=== PATIENT | female | born 1990 | race Caucasian/White ===

== ENCOUNTER 2019-02-08 23:44 | Emergency (ER) | payer BC ==
[2019-02-09] MEDS ORDERED: Metoclopramide 10 MG/2 ML SDV IVPUSH ONE (00:06)
[2019-02-09] MEDS ORDERED: diphenhydrAMINE 50 MG/ML SDV IVPUSH ONE (00:06)
--- NOTE | 2019-02-09 00:07 | EDM.PDOC ---
ED HPI GENERAL MEDICAL PROBLEM - General Chief Complaint: Gastrointestinal Problem Stated Complaint: VOMMITTING AND WEAK Time Seen by Provider: 02/09/19 00:01 Source of Information: Reports: Patient History Limitations: Reports: No Limitations - History of Present Illness INITIAL COMMENTS - FREE TEXT/NARRATIVE: 28-year-old female presents to the ED with reported diarrhea for 2 days anywhere between 5 and 10 times per day. Diary tends to be fairly high volume fluid losses and is yellow in color. No blood noted per rectum. She began vomiting about 0500 hrs. yesterday morning. She has been vomiting almost every hour. Sips of water may be stay down for a bit. She had some cereal before going to work at about 2100 hrs. but vomited this up as well. She went to work at [employer] at 10:00 as per her regular shift start. However within 2 hours she recognized she was no longer able to continue the workplace and called her . She vomited last en route to the hospital. Mostly bile. No blood. She feels chilled but has no defined fever. No one else in the family is ill at this time. On the previous abdominal surgery is . She initially had epigastric abdominal pain but this is for the most part gone. Her muscles are sore from vomiting. Onset: Sudden Onset Date: 02/08/19 Onset Time: 05:00 (Awoken from sleep with spontaneous vomiting yesterday morning. She's had diarrhea for a day before that.) Duration: Hour(s):, Constant Location: Reports: Abdomen (Persistent nausea and vomiting since 5:00 yesterday morning and loose watery diarrhea stools 2 days.) Quality: Reports: Ache (Ache central abdomen.) Severity: Moderate Improves with: Reports: None Worsens with: Reports: Eating Context: Denies: Activity (Eating or drinking makes it much worse.), Exercise, Lifting, Sick Contact, Trauma, Other (Spontaneous occurrence) Associated Symptoms: Reports: Fever/Chills (Chills with no defined fever.), Weakness, Other Treatments INTAKE CLERK: Reports: Other (see below) (Lightheaded dizzy with standing. None.) - Related Data Allergies Allergy/AdvReac Type Severity Reaction Status Date / Time No Known Allergies Allergy Verified 02/08/19 23:56 Home Meds: Home Meds Dicyclomine [Bentyl] 20 mg PO Q6H PRN #5 tablet 02/09/19 [Rx] Ondansetron [Zofran] 4 mg BUCCAL Q6H PRN #5 tab 02/09/19 [Rx] Past Medical History - Past Health History Medical/Surgical History: Denies Medical/Surgical History : 1 Para: 1 Social & Family History - Tobacco Use Smoking Status *Q: Never Smoker - Living Situation & Occupation Living situation: Reports: Single Occupation: Employed ED ROS GENERAL - Review of Systems Review Of Systems: See Below Constitutional: Reports: Chills, Malaise, Weakness, Fatigue, Decreased Appetite , Weight Loss HEENT: Reports: No Symptoms Respiratory: Reports: No Symptoms Cardiovascular: Reports: No Symptoms Endocrine: Reports: No Symptoms GI/Abdominal: Reports: Abdominal Pain (Mild epigastric abdominal pain at present.), Diarrhea, Nausea (Loose watery diarrhea greater than 6 times per day 2 days.), Vomiting (Persistent nausea and vomiting since 0500 hrs. yesterday morning) : Reports: No Symptoms, Other (Currently menstruating.) Musculoskeletal: Reports: No Symptoms Skin: Reports: No Symptoms Neurological: Reports: Dizziness, Weakness Psychiatric: Reports: No Symptoms ED EXAM, GI/ABD - Physical Exam Exam: See Below Exam Limited By: No Limitations General Appearance: Alert, WD/WN, No Apparent Distress, Other (Vital signs are stable. Her blood pressure does drop) Eyes: Bilateral: Normal Appearance (No scleral icterus) Throat/Mouth: Other (Tongue is mildly dry and coated. Lips are dry) Head: Atraumatic, Normocephalic Neck: Normal Inspection, Supple, Non-Tender, Full Range of Motion. No: Lymphadenopathy (L), Lymphadenopathy (R) Respiratory/Chest: No Respiratory Distress, Lungs Clear, Normal Breath Sounds, No Accessory Muscle Use, Chest Non-Tender, Other Cardiovascular: Normal Peripheral Pulses, Regular Rate, Rhythm, No Edema, No Gallop, No Murmur, No Rub (No ketones on her breath) GI/Abdominal Exam: Soft (Bowel sounds are slightly more hyperactive than normal. ), No Organomegaly (Negative Sage sign), No Abnormal Bruit (Mild tenderness in the epigastrium which appears to be muscular.), No Mass, Pelvis Stable, Tender, Abnormal Bowel Sounds, Other Back Exam: Normal Inspection, Full Range of Motion, Vertebral Tenderness. No: CVA Tenderness (L), CVA Tenderness (R) Extremities: Normal Inspection, Non-Tender, No Pedal Edema, Normal Capillary Refill Neurological: Alert, Oriented, CN II-XII Intact, Normal Cognition Psychiatric: Normal Affect, Normal Mood Skin Exam: Warm, Dry, Intact, Normal Color, No Rash Course - Vital Signs Last Recorded V/S: Last Vital Signs Temp 37.0 C 02/08/19 23:54 Pulse 88 02/08/19 23:54 Resp 16 02/08/19 23:54 BP 120/74 02/08/19 23:54 Pulse Ox 100 02/08/19 23:54 Orthostatic Blood Pressure [ 111/79 Standing] Orthostatic Blood Pressure [ 120/74 Supine] - Orders/Labs/Meds Orders: Active Orders 24 hr Category Date Time Status Dextrose 5%-Lactated Ringers 1,000 ml Med 02/09/19 00:15 Active IV ASDIRECTED Ketorolac [Toradol] Med 02/09/19 00:15 Active 30 mg IVPUSH ONETIME Medication Orders Dextrose/Lactated Ringer's (Dextrose 5%-Lactated Ringers) 1,000 mls @ 999 mls/ hr IV ASDIRECTED NILS Last Admin: 02/09/19 00:17 Dose: 999 mls/hr Ketorolac Tromethamine (Toradol) 30 mg IVPUSH ONETIME [facility] Last Admin: 02/09/19 00:15 Dose: 30 mg Labs: Laboratory Tests 02/09/19 02/09/19 02/09/19 Range/Units 00:25 00:25 01:00 WBC 11.23 H (3.98-10.04) K/mm3 RBC 4.70 (3.98-5.22) M/mm3 Hgb 13.3 (11.2-15.7) gm/L Hct 39.3 (34.1-44.9) % MCV 83.6 (79.4-94.8) fl MCH 28.3 (25.6-32.2) pg MCHC 33.8 (32.2-35.5) g/dl RDW Std Deviation 38.3 (36.4-46.3) fL Plt Count 294 (182-369) K/mm3 MPV 10.1 (9.4-12.3) fl Neutrophils % (Manual) 67 H (40-60) % Band Neutrophils % 1 (0-10) % Lymphocytes % (Manual) 24 (20-40) % Atypical Lymphs % 0 % Monocytes % (Manual) 4 (2-10) % Eosinophils % (Manual) 4 (0.7-5.8) % Basophils % (Manual) 0 L (0.1-1.2) Platelet Estimate Adequate Plt Morphology Comment Normal RBC Morph Comment Normal Sodium 140 (136-145) mEq/L Potassium 3.7 (3.5-5.1) mEq/L Chloride 102 (98-107) mEq/L Carbon Dioxide 30 (21-32) mEq/L Anion Gap 11.7 (5-15) BUN 15 (7-18) mg/dL Creatinine 0.7 (0.55-1.02) mg/dL Est Cr Clr Drug Dosing TNP Estimated GFR (MDRD) > 60 (>60) mL/min BUN/Creatinine Ratio 21.4 H (14-18) Glucose 133 H (74-106) mg/dL Calcium 9.3 (8.5-10.1) mg/dL Total Bilirubin 0.4 (0.2-1.0) mg/dL AST 14 L (15-37) U/L ALT 30 (14-59) U/L Alkaline Phosphatase 54 (46-116) U/L C-Reactive Protein 3.3 H* (<1.0) mg/dL Total Protein 7.5 (6.4-8.2) g/dl Albumin 3.6 (3.4-5.0) g/dl Globulin 3.9 gm/dL Albumin/Globulin Ratio 0.9 L (1-2) Urine Color Dark yellow (Yellow) Urine Appearance Clear (Clear) Urine pH 6.0 (5.0-8.0) Ur Specific [place] 1.025 (1.005-1.030) Urine Protein 2+ H (Negative) Urine Glucose (UA) 1+ H (Negative) Urine Ketones 3+ H (Negative) Urine Occult Blood 3+ H (Negative) Urine Nitrite Negative (Negative) Urine Bilirubin 1+ H (Negative) Urine Urobilinogen 0.2 (0.2-1.0) Ur Leukocyte Esterase Negative (Negative) Urine RBC 10-20 H (0-5) /hpf Urine WBC 0-5 (0-5) /hpf Ur Epithelial Cells Not Reportable Ur Squamous Epith Cells 0-5 (0-5) /hpf Urine Bacteria Moderate H (FEW) /hpf Urine Mucus Moderate H (FEW) /hpf Meds: Medications Generic Name Dose Route Start Last Admin Trade Name Freq PRN Reason Stop Dose Admin Dextrose/Lactated Ringer's 1,000 mls @ 999 mls/hr 02/09/19 00:15 02/09/19 00: 17 Dextrose 5%-Lactated Ringers IV 999 mls/hr ASDIRECTED NILS Administration Ketorolac Tromethamine 30 mg 02/09/19 00:15 02/09/19 00:15 Toradol IVPUSH 30 mg ONETIME NILS Administration Discontinued Medications Generic Name Dose Route Start Last Admin Trade Name Freq PRN Reason Stop Dose Admin Diphenhydramine HCl 25 mg 02/09/19 00:06 02/09/19 00:16 Benadryl IVPUSH 02/09/19 00:07 25 mg ONETIME ONE Administration Metoclopramide HCl 10 mg 02/09/19 00:06 02/09/19 00:15 Reglan IVPUSH 02/09/19 00:07 10 mg ONETIME ONE Administration - Radiology Interpretation Free Text/Narrative:: 28-year-old female presents to the ED with that appears to be a viral gastroenteritis. She can relate any possibility of foodborne illness. She's had diarrhea for 2 days greater than 68 times per day. No blood noted. Vomiting yesterday morning about 0500 hrs. and has been persistent nausea and vomiting since that time. Perhaps some small quantities of water didn't stay down today. You going to work at 10:00 last evening at [employer] but felt too dizzy and weak to continue in the workplace and called her friend come and pick her up. She is minimally orthostatic. Benign abdominal examination. Plan D5 Ringer's lactate at open. Routine labs to be performed. Given Reglan 10 mg IV with Benadryl 25 mg IV and Toradol 30 mg IV. - Re-Assessments/Exams Free Text/Narrative Re-Assessment/Exam: 02/09/19 01:34 Labs are back. White count is 11.23 with 67% neutrophils and 1% band cells reported. Hemoglobin is 13.3 with hematocrit of 39.3. White count normal 294,000. Sodium is 140 with potassium of 3.7. Chloride 102 with a bicarbonate of 30. Anion gap is 11.7. BUNs 15 with a creatinine of 0.7. BUN/ creatinine ratio is 21.4 slightly elevated. GFR remains greater than 60. Glucose is 133. Calcium is 9.3. Liver function is normal. C-reactive protein is elevated at 3.3. Urine shows 2+ proteinuria 1+ glucosuria 3+ ketones and 3+ occult blood but she is menstruating at present. There are 10-20 RBCs per power field but no white cells. Moderate bacteria noted. Patient is feeling much improved. She will be discharged home with Zofran 4 mg under the tongue every 4- 6 hours needed for nausea relief. Clear fluid diet. Avoid all dairy products and no apple juice or grape juice until stools are formed back up. Bentyl 20 mg every 6 hours needed for relief of abdominal cramping pain and/or diarrhea. Departure - Departure Time of Disposition: 01:39 Disposition: Home, Self-Care 01 Condition: Fair Clinical Impression: Viral gastroenteritis - Discharge Information *PRESCRIPTION DRUG MONITORING PROGRAM REVIEWED*: Not Applicable *COPY OF PRESCRIPTION DRUG MONITORING REPORT IN PATIENT CORNEL: Not Applicable Prescriptions: Dicyclomine [Bentyl] 20 mg PO Q6H PRN #5 tablet PRN Reason: Abdominal cramps/diarrhea Ondansetron [Zofran] 4 mg BUCCAL Q6H PRN #5 tab PRN Reason: nausea or vomiting Instructions: Viral Gastroenteritis, Adult Referrals: PCP,None [Primary Care Provider] - Forms: ED Department Discharge, ED Return to Work/School Form Additional Instructions: Evaluation the emergency room this morning in regards to nausea vomiting and diarrhea over the last 48 hours. This is created mild to moderate dehydration due to fluid losses and inability to eat and drink. You're treated with intravenous fluids in the ED and medication Reglan 10 mg with Benadryl 25 mg for nausea relief. Toradol 30 mg was given intravenously for abdominal pain relief. Note given to excuse her from the workplace today and tomorrow. Treatment at home is Zofran 4 mg under the tongue every 4-6 hours needed for nausea nausea and vomiting relief. Bentyl 20 mg every 6 hours as needed for relief of abdominal cramping pain or diarrhea stool. Diet to be clear fluids such as Gatorade/Powerade ideally 5 ounces sipped per hour. In hungry made try soda crackers. May eat Jell-O at any time. If this is tolerated may advance to bread with jam on it or toast with jam. May then advance to soup such as turkey rice last chicken noodle. I.e. keep the diet mostly liquidy for the next couple of days. Suggest no dairy products and no apple juice or grape juice until stools are formed back up. - My Orders Last 24 Hours: My Active Orders 02/09/19 00:15 Dextrose 5%-Lactated Ringers 1,000 ml IV ASDIRECTED Ketorolac [Toradol] 30 mg IVPUSH ONETIME - Assessment/Plan Last 24 Hours: My Active Orders 02/09/19 00:15 Dextrose 5%-Lactated Ringers 1,000 ml IV ASDIRECTED Ketorolac [Toradol] 30 mg IVPUSH ONETIME
[2019-02-09] MEDS ORDERED: Dextrose 5%-Lactated Ringers 1,000 ML IV SCH (00:15)
[2019-02-09] MEDS ORDERED: Ketorolac 30 MG/ML SDV IVPUSH SCH (00:15)
[2019-02-09] MEDS ORDERED: Dicyclomine 10 MG Cap PO ONE (01:38)
[2019-02-09] MEDS ORDERED: Ondansetron 4 MG Tab.DIS PO ONE (01:39)
== END 2019-02-09 01:49 | disposition home or self-care (01) ==
LOC: JD.ED 23:44
DX: A08.4 Viral intestinal infection, unspecified (principal)
CPT/HCPCS: 36415; 80053; 81001; 85007; 85027; 86140; 96361; 96374; 96375; 99283; A9270; J1200; J1885; J2765; J7042; 99284

== ENCOUNTER 2020-01-27 05:36 | Inpatient (IN) | payer BC, MEDICAID ==
[~2020-01-27 05:36] MED LIST: Sodium Chloride 0.9% 10 ML Syringe FLUSH PRN
[2020-01-27] MEDS ORDERED: Metoclopramide 10 MG/2 ML SDV IVPUSH ONE (06:30)
[2020-01-27] MEDS ORDERED: Citric Acid/Sodium Citrate Solution 30 ML Cup PO ONE (06:30)
[2020-01-27] MEDS: Lactated Ringers 1,000 ML IV SCH ×2 (06:53→06:54)
--- NOTE | 2020-01-27 07:17 | PCM.OPNOTE ---
- General Post-Op/Procedure Note Date of Surgery/Procedure: 01/27/20 Operative Procedure(s): Repeat low transverse Findings: Minimal amount of scar tissue between the rectus and fascia. Minimal scar tissue between uterus and bladder. Baby boy in VTX presentation. Weight of 8 lbs 7 oz. APGARS of 8 & 9. Normal appearance of the uterus, fallopian tubes, and ovaries Pre Op Diagnosis: 40 5/7 wks gestation. Hx of . BMI 48 Post-Op Diagnosis: Same Anesthesia Technique: Spinal Primary Surgeon: Bettye Tiwari Secondary Surgeon: Eileen Richardson Anesthesia Provider: Danny Coppola Reason Cooky Packer Was Necessary: Speed/safety of procedure. BMI of 48 in patient Pathology: Cord blood collected. Placenta discarded Fluid Replacement, Intraop: 2,200 Output, Urine Amount: 250 EBL in mLs: 500 Complications: None Condition: Good Free Text/Narrative:: The risks, benefits, indications, potential complications, and alternatives were explained to the patient and informed consent obtained. After induction of anesthesia, the patient was placed in a supine position and then draped and prepped in the usual sterile manner. A Pfannenstiel incision was made and carried down through the subcutaneous tissue to the fascia. Fascial incision was made and extended transversely. The fascia was from the underlying rectus tissue superiorly and inferiorly. The peritoneum was identified and entered. Peritoneal incision was extended longitudinally. The utero-vesical peritoneal reflection was incised transversely and the bladder flap was bluntly freed from the lower uterine segment. A low transverse uterine incision was made sharply with a scalpel and extended bluntly in a cephalocaudad direction. A baby boy was delivered from a vertex presentation with aid of vacuum as difficult to apply fundal pressure. One pop off, 2 total pulls. APGARS as above. After the umbilical cord was clamped and cut cord blood was obtained for evaluation. The placenta was removed intact and appeared normal. The uterus was exteriorized and cleared of clots. The uterine outline, tubes and ovaries appeared normal. The uterine incision was closed with running locked sutures of 0 Vicryl. Hemostasis was noted. The uterus was then placed back into the abdomen. The infracolic gutters were cleared of blood clots. The fascia was then reapproximated with running sutures of 1 PDS. The subcutaneous tissue was irrigated with sterile warm normal saline, hemostasis obtained with cautery. This layer was also closed with a running 0 vicryl. The skin was reapproximated with running Subcuticular 4-0 monocryl sutures. Instrument, sponge, and needle counts were correct prior the abdominal closure and at the conclusion of the case.
--- NOTE | 2020-01-27 07:26 | PCM.PREANE ---
Preanesthetic Assessment - Anesthesia/Transfusion/Family Hx Anesthesia History: Prior Anesthesia Without Reaction Transfusion History: No Prior Transfusion(s) - Review of Systems General: No Symptoms Pulmonary: No Symptoms Cardiovascular: No Symptoms Gastrointestinal: No Symptoms Neurological: No Symptoms Other: Reports: None - Physical Assessment NPO Status Date: 01/26/20 NPO Status Time: 23:30 Height: 1.5 m Weight: 108.862 kg ASA Class: 3 (t-1) Mental Status: Alert & Oriented x3 Airway Class: Mallampati = 4 (possibly difficult airway) Dentition: Reports: Normal Dentition (braces upper and lower) Thyro-Mental Finger Breadths: 3 Mouth Opening Finger Breadths: 3 ROM/Head Extension: Full Lungs: Clear to Auscultation, Normal Respiratory Effort Cardiovascular: Regular Rate, Regular Rhythm - Lab Values: Laboratory Last Values WBC 8.07 K/mm3 (3.98-10.04) 01/27/20 06:40 RBC 4.69 M/mm3 (3.98-5.22) 01/27/20 06:40 Hgb 12.1 gm/dl (11.2-15.7) 01/27/20 06:40 Hct 37.5 % (34.1-44.9) 01/27/20 06:40 MCV 80.0 fl (79.4-94.8) D 01/27/20 06:40 MCH 25.8 pg (25.6-32.2) 01/27/20 06:40 MCHC 32.3 g/dl (32.2-35.5) 01/27/20 06:40 RDW Std Deviation 47.5 fL (36.4-46.3) H 01/27/20 06:40 Plt Count 220 K/mm3 (182-369) 01/27/20 06:40 MPV 11.7 fl (9.4-12.3) 01/27/20 06:40 Neut % (Auto) 59.4 % (34.0-71.1) 01/27/20 06:40 Lymph % (Auto) 32.8 % (19.3-51.7) 01/27/20 06:40 [place] % (Auto) 5.5 % (4.7-12.5) 01/27/20 06:40 Eos % (Auto) 1.7 (0.7-5.8) 01/27/20 06:40 Baso % (Auto) 0.2 % (0.1-1.2) 01/27/20 06:40 Neut # (Auto) 4.79 K/mm3 (1.56-6.13) 01/27/20 06:40 Lymph # (Auto) 2.65 K/mm3 (1.18-3.74) 01/27/20 06:40 [place] # (Auto) 0.44 K/mm3 (0.24-0.36) H 01/27/20 06:40 Eos # (Auto) 0.14 K/mm3 (0.04-0.36) 01/27/20 06:40 Baso # (Auto) 0.02 K/mm3 (0.01-0.08) 01/27/20 06:40 - Allergies Allergies/Adverse Reactions: Allergies Allergy/AdvReac Type Severity Reaction Status Date / Time No Known Allergies Allergy Verified 01/26/20 15:08 - Acknowledgements Anesthesia Type Planned: Spinal Pt an Appropriate Candidate for the Planned Anesthesia: Yes Alternatives and Risks of Anesthesia Discussed w Pt/Guardian: Yes Pt/Guardian Understands and Agrees with Anesthesia Plan: Yes PreAnesthesia Questionnaire - Past Health History Medical/Surgical History: Denies Medical/Surgical History IT OPERATIONS MANAGER History: Reports: , Other (See Below) Other OB/BYN History: Primary C/S in 2013 for breech presentation Endocrine/Metabolic History: Reports: Obesity/BMI 30+ (morbid) - SUBSTANCE USE Smoking Status *Q: Former Smoker Tobacco Use Within Last Twelve Months: No Second Hand Smoke Exposure: No Recreational Drug Use History: No - HOME MEDS Home Medications: Home Meds Pnv No.95/Ferrous Fum/Folic AC [ Vitamin Tablet] 1 tab PO DAILY [History] - CURRENT (IN HOUSE) MEDS Current Meds: Current Medications Cefazolin Sodium/Dextrose 1 gm (/ Premix) 50 mls @ 100 mls/hr IV ONETIME ONE Stop: 01/27/20 07:59 Cefazolin Sodium/Dextrose 2 gm (/ Premix) 50 mls @ 100 mls/hr IV ONETIME ONE Stop: 01/27/20 07:59 Lactated Ringer's (Ringers, Lactated) 1,000 mls @ 125 mls/hr IV ASDIRECTED NILS Last Admin: 01/27/20 06:54 Dose: 125 mls/hr Oxytocin/Lactated Ringer's (Pitocin In Lr 10 Units/1,000 Ml) 10 unit in 1,000 mls @ 100 mls/hr IV ASDIRECTED NILS; Protocol Sodium Chloride (Saline Flush) 10 ml FLUSH ASDIRECTED PRN PRN Reason: Keep Vein Open Discontinued Medications Citric Acid/Sodium Citrate (Bicitra Solution) 30 ml PO ONETIME ONE Stop: 01/27/20 06:31 Last Admin: 01/27/20 06:49 Dose: 30 ml Metoclopramide HCl (Reglan) 10 mg IVPUSH ONETIME ONE Stop: 01/27/20 06:31 Last Admin: 01/27/20 06:49 Dose: 10 mg
[2020-01-27] MEDS ORDERED: Oxytocin/Lactated Ringers 10 UNIT/1,000 ML BAG IV SCH (07:30)
[2020-01-27] MEDS ORDERED: ceFAZolin 1 GM in Premix Bag 1 BAG IV ONE (07:30)
[2020-01-27] MEDS ORDERED: ceFAZolin 2 GM in Premix Bag 1 BAG IV ONE (07:30)
[2020-01-27] MEDS ORDERED: Oxytocin 10 Units/1 ML SDV ONE (07:31)
[2020-01-27] MEDS ORDERED: Morphine PF 1 MG/ML Amp ONE (07:32)
[2020-01-27] MEDS ORDERED: fentaNYL 100 MCG/2 ML SDV ONE (07:32)
[2020-01-27] MEDS ORDERED: ceFAZolin 1 GM Vial ONE (07:34)
[2020-01-27] MEDS ORDERED: Lactated Ringers 1,000 ML ONE ×3 (08:17→16:47)
[2020-01-27] MEDS ORDERED: Ketorolac 30 MG/ML SDV ONE (08:36)
[2020-01-27] MEDS ORDERED: diphenhydrAMINE 50 MG/ML SDV IVPUSH PRN ×2 (08:45→10:24)
[2020-01-27] MEDS ORDERED: Ondansetron 4 MG/2 ML SDV IVPUSH PRN (08:45)
[2020-01-27] MEDS ORDERED: fentaNYL 100 MCG/2 ML SDV IVPUSH PRN (08:45)
--- NOTE | 2020-01-27 09:00 | PCM.POSTAN ---
POST ANESTHESIA ASSESSMENT - MENTAL STATUS Mental Status: Alert, Oriented - VITAL SIGNS Vital Signs: Last Vital Signs Temp 98.1 F 01/27/20 08:45 Pulse 83 01/27/20 08:45 Resp 16 01/27/20 08:45 BP 118/73 01/27/20 08:45 Pulse Ox 100 01/27/20 08:45 - RESPIRATORY Respiratory Status: Respiratory Rate WNL, Airway Patent, O2 Saturation Stable, Supplemental Oxygen - CARDIOVASCULAR CV Status: Pulse Rate WNL, Blood Pressure Stable - GASTROINTESTINAL GI Status: [place] - PAIN Pain Score: 0 (post SAB) - POST OP HYDRATION Hydration Status: Adequate & Stable
[2020-01-27] MEDS ORDERED: Ondansetron 4 MG/2 ML SDV ONE (09:04)
[2020-01-27] MEDS ORDERED: Dextrose 5%-Lactated Ringers 1,000 ML IV SCH (10:24)
[2020-01-27] MEDS ORDERED: Naloxone 0.4 MG/ML SDV IVPUSH PRN (10:24)
[2020-01-27] MEDS ORDERED: Ondansetron 4 MG/2 ML SDV IV PRN (10:24)
[2020-01-27] MEDS ORDERED: Docusate Sodium 100 MG Cap PO PRN (10:24)
[2020-01-27] MEDS ORDERED: Sennosides 8.6 MG Tab PO PRN (10:24)
[2020-01-27] MEDS ORDERED: Acetaminophen/oxyCODONE 325-5 MG Tab PO PRN ×2 (10:24)
[2020-01-27] MEDS ORDERED: Sodium Chloride 0.9% 500 ML IV ONE ×2 (12:33→15:39)
[2020-01-27] MEDS: Ketorolac 30 MG/ML SDV IVPUSH SCH ×2 (14:41→21:19)
--- NOTE | 2020-01-27 16:39 | PCM.SN ---
- Free Text/Narrative Note: 1640 Called by RN that patient noted on last assessment that she has trouble seeing since surgery. Notes can't see much of anything. Came in to assess patient. She reports that both eyes are blurred to the point of not seeing. Can not make out figures in front of her face. Has some light and color she can see, but that's it. No headache. No dizziness or lightheadedness. No chest pain or SOB. No weakness she can appreciate. Has had nausea and vomiting post op, but currently well managed. Has been up after surgery which was challenging mostly as not able to see. VS: BP's consistent with clinic values - 110/50-120/60's Gen: NAD Eye exam: When covering each eye individually patient with what appears to be no peripheral vision from either eye. Sees slight motion/light right in front of nose. Similar between both eyes. Normal light reflex bilaterally. Neuro: Normal sensation over face. Appropriate strength testing of bilateral upper extremities and cranial nerves CV: RRR LUNG: CTAB AB: Soft, appropriate tender A/P: Added BMP on to AM's lab draw and will also order CBC and BMP now. Anesthesia notified and do not have specific intervention for patient at this time. [facility] called and connected with on-call Cosmetics Counter Manager, Dr. Olson. He recommends MRI with and without contrast - orbit study. If no acute process can monitor symptoms. If concerns he asked that I call him back. Happy to eventually see patient in follow up. Timing depending upon clinical curse and outcome of above study. Patient and family agree. Radiology team contacted and will make arrangements to get MRI done still this evening. Bettye Tiwari MD
[2020-01-27] MEDS ORDERED: Lactated Ringers 1,000 ML IV SCH (16:45)
[2020-01-27] MEDS ORDERED: Gadobenate Dimeglumine 529 MG/ML 20 ML SDV IVPUSH ONE (18:34)
[2020-01-27] MEDS ORDERED: Sodium Chloride 0.9% 10 ML Syringe FLUSH SCH (18:45)
--- NOTE | 2020-01-27 19:49 | MR ---
MRI brain (without and with intravenous contrast) Technique: T1 sagittal; T2 and T1 coronal; T1, T2, T2 FLAIR and diffusion axial; T1 post gadolinium axial and T1 FLAIR and post gadolinium coronal images were obtained. Comparison: No prior intracranial imaging is available. Findings: Artifact is seen obscuring portions of the anterior brain and orbits due to dental artifact. Portions of the cerebellum are also obscured from artifact. Ventricles along with basal cisterns and sulci over the convexities are within normal limits for the patient's age. No retrobulbar abnormality appreciated on the visualized images. Visualized extraocular muscles show no discrete abnormality. Minimal mucosal thickening is seen within the ethmoid sinuses. Small areas of increased signal seen within the subcortical white matter on the FLAIR sequence. This is noted within the left parietal region posteriorly. Several minimal areas of increased signal seen within the subcortical white matter within the occipital regions. No other abnormal signal is seen. No midline shift or mass effect is appreciated. Diffusion sequences are uninterpretable due to artifact. No additional abnormal signal is seen on this limited exam. No abnormal enhancement is appreciated. Impression: 1. Extreme artifact due to dental hardware. 2. Small area of increased signal within the left periventricular white matter within the posterior left parietal region as well as small area of increased signal within the subcortical white matter within both posterior occipital regions. These are nonspecific but difficult to exclude early MS. 3. No evidence of abnormal enhancement. 4. No comment about acute diffusion abnormalities as diffusion images are completely uninterpretable. 5. Other findings believed to be incidental as noted above. Diagnostic code #3 Study was dictated in MDT
--- NOTE | 2020-01-27 19:49 | MR ---
MR angiogram of brain Technique: [id number] MRA angiogram study was obtained centered to the [place]. Findings: Artifact is noted from dental hardware. Slight narrowing is seen within this inferior left middle cerebral artery which is most likely due to artifact. Main middle cerebral arteries as well as anterior cerebral arteries show no focal stenosis or occlusion. Vertebral arteries and basilar artery as well as posterior cerebral arteries shows no discrete narrowing or occlusion. Visualized internal carotid artery showed no stenosis or occlusion. Impression: 1. Less than optimal study due to dental artifact. 2. Narrowing within a branch of the left middle cerebral artery most likely due to artifact. 3. No definite stenosis or occlusion is seen within the main cerebral arteries. Diagnostic code #3 Study was dictated in MDT
--- NOTE | 2020-01-27 20:22 | PCM.SN ---
- Free Text/Narrative Note: 2014 MRI read as normal. Patient states vision a little less blurry. When covering eyes and assessing peripheral vision right eye seems to have improved although with left eye finger still has to be almost directly in front of her to see it. Will monitor symptoms overnight. Further planning pending evaluation tomorrow. Bettye Tiwari MD
[2020-01-28] MEDS: Ketorolac 30 MG/ML SDV IVPUSH SCH (03:50)
--- NOTE | 2020-01-28 08:39 | PCM.PNPP ---
- General Info Date of Service: 01/28/20 Functional Status: Reports: Pain Controlled, Tolerating Diet, Ambulating - Review of Systems General: Reports: No Symptoms HEENT: Reports: Visual Changes (Patient reports visual changes have not improved and actually may have worsened somewhat. Can see color and light, but having challenges with peripheral vision) Pulmonary: Reports: No Symptoms Cardiovascular: Reports: No Symptoms Gastrointestinal: Reports: Abdominal Pain (managed with medications ) Genitourinary: Reports: No Symptoms Musculoskeletal: Reports: No Symptoms Neurological: Reports: No Symptoms - Patient Data Vital Signs - Most Recent: Last Vital Signs Temp 37.3 C 01/28/20 08:00 Pulse 73 01/28/20 08:00 Resp 18 01/28/20 08:00 BP 113/60 01/28/20 08:00 Pulse Ox 100 01/28/20 08:00 Weight - Most Recent: 108.862 kg I&O - Last 24 Hours: Intake & Output 01/27/20 01/28/20 01/28/20 22:59 06:59 14:59 Intake Total 120 Output Total 325 650 150 Balance -205 -650 -150 Lab Results - Last 24 Hours: Laboratory Results - last 24 hr 01/27/20 01/27/20 01/27/20 Range/Units 06:40 06:40 16:52 WBC 12.49 H (3.98-10.04) K/mm3 RBC 4.57 (3.98-5.22) M/mm3 Hgb 11.8 (11.2-15.7) gm/dl Hct 36.5 (34.1-44.9) % MCV 79.9 (79.4-94.8) fl MCH 25.8 (25.6-32.2) pg MCHC 32.3 (32.2-35.5) g/dl RDW Std Deviation 45.9 (36.4-46.3) fL Plt Count 218 (182-369) K/mm3 MPV 11.4 (9.4-12.3) fl Sodium 138 (136-145) mEq/L Potassium 3.8 (3.5-5.1) mEq/L Chloride 104 (98-107) mEq/L Carbon Dioxide 24 (21-32) mEq/L Anion Gap 13.8 (5-15) BUN 8 (7-18) mg/dL Creatinine 0.6 (0.55-1.02) mg/dL Est Cr Clr Drug Dosing 100.27 mL/min Estimated GFR (MDRD) > 60 (>60) mL/min BUN/Creatinine Ratio 13.3 L (14-18) Glucose 78 (74-106) mg/dL Calcium 8.3 L (8.5-10.1) mg/dL Blood Type O POSITIVE Gel Antibody Screen Negative 01/27/20 01/28/20 Range/Units 16:52 06:15 WBC 9.42 (3.98-10.04) K/mm3 RBC 3.97 L (3.98-5.22) M/mm3 Hgb 10.2 L D (11.2-15.7) gm/dl Hct 32.1 L (34.1-44.9) % MCV 80.9 (79.4-94.8) fl MCH 25.7 (25.6-32.2) pg MCHC 31.8 L (32.2-35.5) g/dl RDW Std Deviation 46.5 H (36.4-46.3) fL Plt Count 186 (182-369) K/mm3 MPV 11.1 (9.4-12.3) fl Sodium 138 (136-145) mEq/L Potassium 4.3 (3.5-5.1) mEq/L Chloride 106 (98-107) mEq/L Carbon Dioxide 23 (21-32) mEq/L Anion Gap 13.3 (5-15) BUN 8 (7-18) mg/dL Creatinine 0.5 L (0.55-1.02) mg/dL Est Cr Clr Drug Dosing 120.32 mL/min Estimated GFR (MDRD) > 60 (>60) mL/min BUN/Creatinine Ratio 16.0 (14-18) Glucose 97 (74-106) mg/dL Calcium 8.0 L (8.5-10.1) mg/dL Blood Type Gel Antibody Screen Med Orders - Current: Current Medications Diphenhydramine HCl (Benadryl) 25 mg IVPUSH Q6H PRN PRN Reason: Itching or Nausea Docusate Sodium (Colace) 100 mg PO Q12H PRN PRN Reason: Constipation Lactated Ringer's (Ringers, Lactated) 1,000 mls @ 125 mls/hr IV ASDIRECTED NILS Last Admin: 01/27/20 16:57 Dose: 125 mls/hr Ibuprofen (Motrin) 600 mg PO Q6H PRN PRN Reason: mild pain or fever Naloxone HCl (Narcan) 0.1 mg IVPUSH SEECOMMENT PRN PRN Reason: Respiratory Depression Ondansetron HCl (Zofran) 4 mg IV Q8H PRN PRN Reason: Nausea/Vomiting Oxycodone/Acetaminophen (Percocet 325-5 Mg) 1 tab PO Q4H PRN PRN Reason: Pain (moderate 4-6) Oxycodone/Acetaminophen (Percocet 325-5 Mg) 2 tab PO Q4H PRN PRN Reason: Pain (severe 7-10) Senna (Senna) 8.6 mg PO BEDTIME PRN PRN Reason: Constipation [facility] Last Admin: 01/27/20 19:39 Dose: 10 ml Discontinued Medications Cefazolin Sodium (Ancef) Confirm Administered Dose 3 gm .ROUTE .STK-MED ONE Stop: 01/27/20 07:35 Citric Acid/Sodium Citrate (Bicitra Solution) 30 ml PO ONETIME ONE Stop: 01/27/20 06:31 Last Admin: 01/27/20 06:49 Dose: 30 ml Diphenhydramine HCl (Benadryl) 25 mg IVPUSH Q6H PRN PRN Reason: Pruritis Fentanyl (Sublimaze) Confirm Administered Dose 100 mcg .ROUTE .STK-MED ONE Stop: 01/27/20 07:33 Fentanyl (Sublimaze) 50 mcg IVPUSH Q5M PRN PRN Reason: Pain Gadobenate Dimeglumine (Multihance) 20 ml IVPUSH ONETIME ONE Stop: 01/27/20 18:35 Last Admin: 01/27/20 19:38 Dose: 20 ml Cefazolin Sodium/Dextrose 1 gm (/ Premix) 50 mls @ 100 mls/hr IV ONETIME ONE Stop: 01/27/20 07:59 Last Admin: 01/27/20 21:06 Dose: Not Given Cefazolin Sodium/Dextrose 2 gm (/ Premix) 50 mls @ 100 mls/hr IV ONETIME ONE Stop: 01/27/20 07:59 Last Admin: 01/27/20 21:07 Dose: Not Given Lactated Ringer's (Ringers, Lactated) 1,000 mls @ 125 mls/hr IV ASDIRECTED [facility] Last Admin: 01/27/20 06:54 Dose: 125 mls/hr Oxytocin/Lactated Ringer's (Pitocin In Lr 10 Units/1,000 Ml) 10 unit in 1,000 mls @ 100 mls/hr IV ASDIRECTED [facility]; Protocol Lactated Ringer's (Ringers, Lactated) Confirm Administered Dose 1,000 mls @ as directed .ROUTE .STK-MED ONE Stop: 01/27/20 08:18 Lactated Ringer's (Ringers, Lactated) Confirm Administered Dose 1,000 mls @ as directed .ROUTE .STK-MED ONE Stop: 01/27/20 08:33 Dextrose/Lactated Ringer's (Dextrose 5%-Lactated Ringers) 1,000 mls @ 125 mls/ hr IV ASDIRECTED [facility] Stop: 01/27/20 18:23 Last Admin: 01/27/20 11:25 Dose: 125 mls/hr Sodium Chloride (Normal Saline) 500 mls @ 999 mls/min IV .BOLUS ONE Stop: 01/27/20 12:34 Last Admin: 01/27/20 13:26 Dose: 999 mls/min Sodium Chloride (Normal Saline) 500 mls @ 999 mls/hr IV .BOLUS ONE Stop: 01/27/20 16:09 Last Admin: 01/27/20 15:59 Dose: 999 mls/hr Lactated Ringer's (Ringers, Lactated) Confirm Administered Dose 1,000 mls @ as directed .ROUTE .STK-MED ONE Stop: 01/27/20 16:48 Last Admin: 01/27/20 16:56 Dose: 125 mls/hr Ketorolac Tromethamine (Toradol) Confirm Administered Dose 30 mg .ROUTE .STK- MED ONE Stop: 01/27/20 08:37 Ketorolac Tromethamine (Toradol) 30 mg IVPUSH Q6H [facility] Stop: 01/28/20 02:31 Last Admin: 01/28/20 03:50 Dose: 30 mg Metoclopramide HCl (Reglan) 10 mg IVPUSH ONETIME ONE Stop: 01/27/20 06:31 Last Admin: 01/27/20 06:49 Dose: 10 mg Miscellaneous Medication (Phenylephrine 1 Mg/10 Ml-Ns) Confirm Administered Dose 2 mg IV .STK-MED ONE Stop: 01/27/20 08:19 Morphine Sulfate (Duramorph Pf) Confirm Administered Dose 1 mg .ROUTE .STK-MED ONE Stop: 01/27/20 07:33 Ondansetron HCl (Zofran) 4 mg IVPUSH ONETIME PRN PRN Reason: Nausea/Vomiting Last Admin: 01/27/20 15:26 Dose: 4 mg Ondansetron HCl (Zofran) Confirm Administered Dose 8 mg .ROUTE .STK-MED ONE Stop: 01/27/20 09:05 Oxytocin (Pitocin) Confirm Administered Dose 20 unit .ROUTE .STK-MED ONE Stop: 01/27/20 07:32 Sodium Chloride (Saline Flush) 10 ml FLUSH ASDIRECTED PRN PRN Reason: Keep Vein Open - Infant Interaction Disposition, : [place] in Room with Family Infant Interaction: Holding Infant Feeding: Bottle Fed Infant Support Person: - Recovery Exam Fundal Tone: Firm Fundal Level: At Umbilicus Fundal Placement: Midline Lochia Amount: Small Lochia Color: Rubra/Red Perineum Description: Intact, Minimal Bruising/Swelling Urinary Elimination: Indwelling Catheter - Exam General: Alert, Oriented, Cooperative HEENT: Pupils Equal, Pupils Reactive, EOMI, Other (Patient with impaired peripheral vision. Difficulty finger tracking. ) Lungs: Clear to Auscultation, Normal Respiratory Effort Cardiovascular: Regular Rate, Regular Rhythm GI/Abdominal Exam: Soft, Non-Tender Extremities: Normal Inspection Skin: Warm, Dry, Intact Wound/Incisions: Healing Well, No Drainage Neurological: Normal Speech, Sensation Intact, Cranial Nerves Intact - Problem List & Annotations (1) 40 weeks gestation of SNOMED Code(s): 14372901 Code(s): Z3A.40 - 40 WEEKS GESTATION OF Status: Acute Current Visit: Yes (2) S/P repeat low transverse SNOMED Code(s): 190809853, 57376653, 493627773, 651758178, 322558596 Code(s): Z98.891 - HISTORY OF UTERINE SCAR FROM PREVIOUS SURGERY Status: Acute Current Visit: Yes (3) Vision loss SNOMED Code(s): 325934010 Code(s): H54.7 - UNSPECIFIED VISUAL LOSS Status: Acute Current Visit: Yes - Problem List Review Problem List Initiated/Reviewed/Updated: Yes - My Orders Last 24 Hours: My Active Orders 01/27/20 10:24 Activity as Tolerated [RC] .Routine Antiembolic Devices [RC] PER UNIT ROUTINE Communication Order [RC] PER UNIT ROUTINE Intake and Output [RC] Q4H May Shower [RC] PER UNIT ROUTINE Notify Provider Intake and Out [RC] ASDIRECTED RT Incentive Spirometry [RC] Q2HWA Acetaminophen/oxyCODONE [Percocet 325-5 MG] 1 tab PO Q4H PRN Acetaminophen/oxyCODONE [Percocet 325-5 MG] 2 tab PO Q4H PRN Docusate Sodium [Colace] 100 mg PO Q12H PRN Naloxone [Narcan] 0.1 mg IVPUSH SEECOMMENT PRN Ondansetron [Zofran] 4 mg IV Q8H PRN Sennosides [Senna] 8.6 mg PO BEDTIME PRN diphenhydrAMINE [Benadryl] 25 mg IVPUSH Q6H PRN Assess Lochia [WOMSER] Per Unit Routine Assess Uterine Involution [WOMSER] Per Unit Routine Breast Pump [WOMSER] Per Unit Routine Heat Therapy [OM.PC] Per Unit Routine Peripheral IV Discontinue [OM.PC] Routine Sequential Compression Device [OM.PC] Per Unit Routine 01/27/20 16:45 Lactated Ringers [Ringers, Lactated] 1,000 ml IV ASDIRECTED 01/27/20 18:45 Sodium Chloride 0.9% [Saline Flush] 10 ml FLUSH ASDIRECTED 01/28/20 08:30 Ibuprofen [Motrin] 600 mg PO Q6H PRN 01/28/20 08:45 Urinary Catheter Removal [RC] Per Unit Routine - Assessment Assessment:: POD#1 - Plan Plan:: Post op * Routine cares, meeting goals * Bottle feeding Vision loss * MRI last night without gross abnormality. Will plan on discharge today so that patient can follow with Ophthalmology tomorrow. Appointment set for [address]. Olson at [facility]. Will continue to help patient make arrangements to get to this appointment.
[2020-01-28] MEDS: Ibuprofen 600 MG Tab PO PRN ×2 (10:44→19:11)
--- NOTE | 2020-01-28 11:58 | PCM48HPAN ---
Post Anesthesia Note - EVALUATION WITHIN 48HRS OF ANESTHETIC Vital Signs in Normal Range: Yes Patient Participated in Evaluation: Yes Respiratory Function Stable: Yes Airway Patent: Yes Cardiovascular Function Stable: Yes Hydration Status Stable: Yes Pain Control Satisfactory: No (complains on headache 4/10) Mental Status Recovered: Yes Vital Signs: Last Vital Signs Temp 99.1 F 01/28/20 08:00 Pulse 73 01/28/20 08:00 Resp 18 01/28/20 08:00 BP 113/60 01/28/20 08:00 Pulse Ox 100 01/28/20 08:00 - COMMENTS/OBSERVATIONS Free Text/Narrative:: Patient is on her postoperative day 1. Patient has reported blurred vision/ peripheral vision problems and persistent nausea yesterday and has been taken for head MRI studies that came back without abnormality. This morning on assessment the patient complains about the increasing headache and still difficulty seeing, but no nausea. Neurologically: Pupils equal and reacting to light, no side deficit noted on cranial nerve assessment. Upper and lower extremities intact on motor and sensory assessment. Patient reported being out of bed and ambulating to the restroom, Maria catheter has been discontinued. Postoperative pain 4/10 under control with oral analgetics. Plan is continue to monitor the symptoms and to be seen by [facility] ophtalmologist.
--- NOTE | 2020-01-28 12:15 | PCM.DCSUM1 ---
Discharge Summary - Discharge Data Discharge Date: 01/28/20 Discharge Disposition: Home, Self-Care 01 Condition: Good - Referral to Home Health Primary Care Physician: Bettye Tiwari MD - Discharge Diagnosis/Problem(s) (1) 40 weeks gestation of SNOMED Code(s): 76281395 ICD Code: Z3A.40 - 40 WEEKS GESTATION OF Status: Acute (2) S/P repeat low transverse SNOMED Code(s): 620361629, 17179093, 729762870, 777905078, 868675627 ICD Code: Z98.891 - HISTORY OF UTERINE SCAR FROM PREVIOUS SURGERY Status: Acute (3) Vision loss SNOMED Code(s): 611496823 ICD Code: H54.7 - UNSPECIFIED VISUAL LOSS Status: Acute - Patient Summary/Data Operative Procedure(s) Performed: Repeat low transverse Complications: Unexpected visual changes Consults: Outpatient consult - Ophthalmology Recommended Follow-up Testing/Procedures: Follow up with Ophthalmology on 01/29/20 - Dr. Olson, [facility] Follow up with Dr. Tiwari in 1-2 weeks for / post op check Hospital Course: 29 y/o presented at 40 5/7 wk for repeat . Had initially delayed surgery as wanted to attempt , but given lessening chance of success being post dates was agreeable to repeat surgery. Surgery itself was uncomplicated. See operative note. Post op, however, patient with concerns of bilateral peripheral vision loss and that even residual vision was very blurry and mostly just light/color. Ophthalmology consulted via call and recommended MRI which was done and grossly normal. Symptoms monitored, but persisted to POD #1 relatively unchanged per patient report. For this reason she was discharged home late on POD#1 and arrangements made for outpatient Ophthalmology evaluation on POD#2 in [place]. - Patient Instructions Diet: Regular Diet as Tolerated Activity: No Lifting Over 10 Pounds Activity, Other: Pelvic rest for 6 weeks Driving: Do Not Drive (while taking narcotics ) Showering/Bathing: May Shower, No Tub Bathing/Swimming Wound/Incision Care: Keep Operative Site/Wound Site Clean and Dry Notify Provider of: Fever, Increased Pain, Swelling and Redness, Drainage, Nausea and/or Vomiting - Discharge Plan *PRESCRIPTION DRUG MONITORING PROGRAM REVIEWED*: No *COPY OF PRESCRIPTION DRUG MONITORING REPORT IN PATIENT CORNEL: No Prescriptions/Med Rec: Acetaminophen/oxyCODONE [Percocet 325-5 MG] 1 - 2 tab PO Q6H PRN #25 tablet PRN Reason: Pain (Moderate 4-6) Home Medications: Home Meds Pnv No.95/Ferrous Fum/Folic AC [ Vitamin Tablet] 1 tab PO DAILY [History] Acetaminophen/oxyCODONE [Percocet 325-5 MG] 1 - 2 tab PO Q6H PRN #25 tablet 12/17 [Rx] Docusate Sodium [Colace] 100 mg PO Q12H PRN cap 01/28/20 [Rx] Ibuprofen [Motrin] 600 mg PO Q6H PRN tablet 01/28/20 [Rx] Patient Handouts: Care After Delivery Referrals: Bettye Tiwari MD [Primary Care Provider] - (1-2 weeks for post op check. Please call clinic for appointment. ) - Discharge Summary/Plan Comment DC Time >30 min.: No - Patient Data Vitals - Most Recent: Last Vital Signs Temp 37.3 C 01/28/20 08:00 Pulse 73 01/28/20 08:00 Resp 18 01/28/20 08:00 BP 113/60 01/28/20 08:00 Pulse Ox 100 01/28/20 08:00 Weight - Most Recent: 108.862 kg I&O - Last 24 hours: Intake & Output 01/27/20 01/28/20 01/28/20 22:59 06:59 14:59 Intake Total 120 240 Output Total 325 650 150 Balance -205 -650 90 Lab Results - Last 24 hrs: Laboratory Results - last 24 hr 01/27/20 01/27/20 01/27/20 Range/Units 06:40 16:52 16:52 WBC 12.49 H (3.98-10.04) K/mm3 RBC 4.57 (3.98-5.22) M/mm3 Hgb 11.8 (11.2-15.7) gm/dl Hct 36.5 (34.1-44.9) % MCV 79.9 (79.4-94.8) fl MCH 25.8 (25.6-32.2) pg MCHC 32.3 (32.2-35.5) g/dl RDW Std Deviation 45.9 (36.4-46.3) fL Plt Count 218 (182-369) K/mm3 MPV 11.4 (9.4-12.3) fl Sodium 138 138 (136-145) mEq/L Potassium 3.8 4.3 (3.5-5.1) mEq/L Chloride 104 106 (98-107) mEq/L Carbon Dioxide 24 23 (21-32) mEq/L Anion Gap 13.8 13.3 (5-15) BUN 8 8 (7-18) mg/dL Creatinine 0.6 0.5 L (0.55-1.02) mg/dL Est Cr Clr Drug Dosing 100.27 120.32 mL/min Estimated GFR (MDRD) > 60 > 60 (>60) mL/min BUN/Creatinine Ratio 13.3 L 16.0 (14-18) Glucose 78 97 (74-106) mg/dL Calcium 8.3 L 8.0 L (8.5-10.1) mg/dL 01/28/20 Range/Units 06:15 WBC 9.42 (3.98-10.04) K/mm3 RBC 3.97 L (3.98-5.22) M/mm3 Hgb 10.2 L D (11.2-15.7) gm/dl Hct 32.1 L (34.1-44.9) % MCV 80.9 (79.4-94.8) fl MCH 25.7 (25.6-32.2) pg MCHC 31.8 L (32.2-35.5) g/dl RDW Std Deviation 46.5 H (36.4-46.3) fL Plt Count 186 (182-369) K/mm3 MPV 11.1 (9.4-12.3) fl Sodium (136-145) mEq/L Potassium (3.5-5.1) mEq/L Chloride (98-107) mEq/L Carbon Dioxide (21-32) mEq/L Anion Gap (5-15) BUN (7-18) mg/dL Creatinine (0.55-1.02) mg/dL Est Cr Clr Drug Dosing mL/min Estimated GFR (MDRD) (>60) mL/min BUN/Creatinine Ratio (14-18) Glucose (74-106) mg/dL Calcium (8.5-10.1) mg/dL Med Orders - Current: Current Medications Diphenhydramine HCl (Benadryl) 25 mg IVPUSH Q6H PRN PRN Reason: Itching or Nausea Docusate Sodium (Colace) 100 mg PO Q12H PRN PRN Reason: Constipation Last Admin: 01/28/20 10:43 Dose: 100 mg Lactated Ringer's (Ringers, Lactated) 1,000 mls @ 125 [facility] Last Admin: 01/27/20 16:57 Dose: 125 mls/hr Ibuprofen (Motrin) 600 mg PO Q6H PRN PRN Reason: mild pain or fever Last Admin: 01/28/20 10:44 Dose: 600 mg Naloxone HCl (Narcan) 0.1 mg IVPUSH SEECOMMENT PRN PRN Reason: Respiratory Depression Ondansetron HCl (Zofran) 4 mg IV Q8H PRN PRN Reason: Nausea/Vomiting Oxycodone/Acetaminophen (Percocet 325-5 Mg) 1 tab PO Q4H PRN PRN Reason: Pain (moderate 4-6) Last Admin: 01/28/20 10:41 Dose: 1 tab Oxycodone/Acetaminophen (Percocet 325-5 Mg) 2 tab PO Q4H PRN PRN Reason: Pain (severe 7-10) Senna (Senna) 8.6 mg PO BEDTIME PRN PRN Reason: Constipation Sodium Ch[facility] ([facility]) [facility] Last Admin: 01/27/20 19:39 Dose: 10 ml Discontinued Medications Cefazolin Sodium (Ancef) Confirm Administered Dose 3 gm .ROUTE .STK-MED ONE Stop: 01/27/20 07:35 Citric Acid/Sodium Citrate (Bicitra Solution) 30 ml PO ONETIME ONE Stop: 01/27/20 06:31 Last Admin: 01/27/20 06:49 Dose: 30 ml Diphenhydramine HCl (Benadryl) 25 mg IVPUSH Q6H PRN PRN Reason: Pruritis Fentanyl (Sublimaze) Confirm Administered Dose 100 mcg .ROUTE .STK-MED ONE Stop: 01/27/20 07:33 Fentanyl (Sublimaze) 50 mcg IVPUSH Q5M PRN PRN Reason: Pain Gadobenate Dimeglumine (Multihance) 20 ml IVPUSH ONETIME ONE Stop: 01/27/20 18:35 Last Admin: 01/27/20 19:38 Dose: 20 ml Cefazolin Sodium/Dextrose 1 gm (/ Premix) 50 mls @ 100 mls/hr IV ONETIME ONE Stop: 01/27/20 07:59 Last Admin: 01/27/20 21:06 Dose: Not Given Cefazolin Sodium/Dextrose 2 gm (/ Premix) 50 mls @ 100 mls/hr IV ONETIME ONE Stop: 01/27/20 07:59 Last Admin: 01/27/20 21:07 Dose: Not Given Lactated Ringer's (Ringers, Lactated) 1,000 mls @ 125 mls/hr IV ASDIRECTED [facility] Last Admin: 01/27/20 06:54 Dose: 125 mls/hr Oxytocin/Lactated Ringer's (Pitocin In Lr 10 Units/1,000 Ml) 10 unit in 1,000 mls @ 100 mls/hr IV ASDIRECTED NILS; Protocol Lactated Ringer's (Ringers, Lactated) Confirm Administered Dose 1,000 mls @ as directed .ROUTE .STK-MED ONE Stop: 01/27/20 08:18 Lactated Ringer's (Ringers, Lactated) Confirm Administered Dose 1,000 mls @ as directed .ROUTE .STK-MED ONE Stop: 01/27/20 08:33 Dextrose/Lactated Ringer's (Dextrose 5%-Lactated Ringers) 1,000 mls @ 125 mls/ hr IV ASDIRECTED [facility] Stop: 01/27/20 18:23 Last Admin: 01/27/20 11:25 Dose: 125 mls/hr Sodium Chloride (Normal Saline) 500 mls @ 999 mls/min IV .BOLUS ONE Stop: 01/27/20 12:34 Last Admin: 01/27/20 13:26 Dose: 999 mls/min Sodium Chloride (Normal Saline) 500 mls @ 999 mls/hr IV .BOLUS ONE Stop: 01/27/20 16:09 Last Admin: 01/27/20 15:59 Dose: 999 mls/hr Lactated Ringer's (Ringers, Lactated) Confirm Administered Dose 1,000 mls @ as directed .ROUTE .STK-MED ONE Stop: 01/27/20 16:48 Last Admin: 01/27/20 16:56 Dose: 125 mls/hr Ketorolac Tromethamine (Toradol) Confirm Administered Dose 30 mg .ROUTE .STK- MED ONE Stop: 01/27/20 08:37 Ketorolac Tromethamine (Toradol) 30 mg IVPUSH Q6H [facility]IL[facility] Stop: 01/28/20 02:31 Last Admin: 01/28/20 03:50 Dose: 30 mg Metoclopramide HCl (Reglan) 10 mg IVPUSH ONETIME ONE Stop: 01/27/20 06:31 Last Admin: 01/27/20 06:49 Dose: 10 mg Miscellaneous Medication (Phenylephrine 1 Mg/10 Ml-Ns) Confirm Administered Dose 2 mg IV .STK-MED ONE Stop: 01/27/20 08:19 Morphine Sulfate (Duramorph Pf) Confirm Administered Dose 1 mg .ROUTE .STK-MED ONE Stop: 01/27/20 07:33 Ondansetron HCl (Zofran) 4 mg IVPUSH ONETIME PRN PRN Reason: Nausea/Vomiting Last Admin: 01/27/20 15:26 Dose: 4 mg Ondansetron HCl (Zofran) Confirm Administered Dose 8 mg .ROUTE .STK-MED ONE Stop: 01/27/20 09:05 Oxytocin (Pitocin) Confirm Administered Dose 20 unit .ROUTE .STK-MED ONE Stop: 01/27/20 07:32 Sodium Chloride (Saline Flush) 10 ml FLUSH ASDIRECTED PRN PRN Reason: Keep Vein Open
[2020-01-28] MEDS ORDERED: Metoclopramide 10 MG/2 ML SDV IVPUSH ONE (12:53)
[2020-01-28] MEDS ORDERED: Sodium Chloride 0.9% 250 ML IV ONE (12:54)
[2020-01-28] MEDS ORDERED: SODIUM CHLORIDE 0.9% IV ONE (13:15)
[2020-01-28] MEDS ORDERED: METOCLOPRAMIDE IV ONE (13:15)
== END 2020-01-28 20:05 | disposition home or self-care (01) | DRG 540 ==
LOC: JD.OB 05:36
PROVIDERS: ADMIT Obstetrics & Gynecology; ATTEND Obstetrics & Gynecology
PROC: 10D00Z1 Extraction of Products of Conception, Low, Open Approach (ICD-10-PCS; principal; 2020-01-27)
DX: O34.211 Maternal care for low transverse scar from previous cesarean delivery (principal); O75.89 Other specified complications of labor and delivery; H54.3 Unqualified visual loss, both eyes; O99.214 Obesity complicating childbirth; E66.9 Obesity, unspecified; Z3A.40 40 weeks gestation of pregnancy; Z37.0 Single live birth; Z87.891 Personal history of nicotine dependence
CPT/HCPCS: 01961; 36415; 59025; 70543; 70543-26; 70544; 70544-26; 70553; 70553-26; 80048; 84450; 84460; 85025; 85027; 86592; 86850; 86900; 86901; 94762; A9270-GY; A9577; J0690; J1200; J1885; J2274; J2370; J2405; J2590; J2765; J3010; J7030; J7040; J7050; J7120; J7121

== ENCOUNTER 2021-01-02 23:03 | Emergency (ER) | payer BC, MEDICAID ==
[2021-01-03 00:10] LABS: CORONAVIRUS COVID-19 NAA NEGATIVE (NEGATIVE)
--- NOTE | 2021-01-03 00:24 | EDM.PDOC ---
ED HPI GENERAL MEDICAL PROBLEM - General Chief Complaint: Chest Pain Stated Complaint: CHEST AND BACK PAIN Time Seen by Provider: 01/03/21 00:10 Source of Information: Reports: Patient History Limitations: Reports: No Limitations - History of Present Illness INITIAL COMMENTS - FREE TEXT/NARRATIVE: Ms. Mcrae is a pleasant 30-year-old woman who now presents to the ED stating that she has had generalized body aches for the past 3 days, since 12/30/2020, and 2 days of a nonproductive cough, dyspnea, and intermittent right- sided chest pain. She states that at 1 point the cough led her to vomit, however, she has not had nausea independently. No recent fever. No prior similar symptoms. The patient states that she has not taken any hugz-wvn-tvrklco or home remedies to treat her symptoms. Of note, the patient states that she was diagnosed with COVID-19 in July. She did not require medical treatment. Here in the ED, the patient is found to be hemodynamically stable, afebrile, saturating 94% on room air. Prior to Saturday, the patient denies having a recent fever, chills, sore throat, ear pain, nasal or sinus congestion, cough, dyspnea, chest pain, palpitations, nausea, vomiting, constipation, diarrhea, abdominal pain, urinary symptoms, recent weight gain or weight loss, recent bloody bowel movements or black bowel movements, recent joint aches, headaches, or rashes. The patient does not have a PCP. Her House Sitter is Dr. Bettye Tiwari. She has not received an influenza vaccine this season, but agreed to get one here in the ED. - Related Data Allergies Allergy/AdvReac Type Severity Reaction Status Date / Time No Known Allergies Allergy Verified 01/02/21 23:18 Home Meds: Home Meds . [No Known Home Meds] 01/02/21 [History] Past Medical History Endocrine/Metabolic History: Reports: Obesity/BMI 30+ - Infectious Disease History Infectious Disease History: Reports: Novel Coronavirus (dx'd Jul 2020) - Past Surgical History HEENT Surgical History: Reports: Oral Surgery (dental extractions) Female Surgical History: Reports: Section (x 2) Social & Family History - Tobacco Use Tobacco Use Status *Q: Former Tobacco User Tobacco Use Within Last Twelve Months: Vaping (Vapes nicotine on occasion) Packs/Tins Daily: 0.1 Month/Year Tobacco Last Used: Quit Jul 2020 - Caffeine Use Caffeine Use: Reports: None - Alcohol Use Alcohol Use History: Yes Alcohol Use Frequency: Socially - Recreational Drug Use Recreational Drug Use: No - Living Situation & Occupation Living situation: Reports: Single, with Family Occupation: Employed ([employer]) ED ROS GENERAL - Review of Systems Review Of Systems: Comprehensive ROS is negative, except as noted in HPI. ED EXAM, GENERAL - Physical Exam Exam: See Below Exam Limited By: No Limitations General Appearance: Alert, WD/WN, No Apparent Distress Eye Exam: Bilateral Eye: EOMI, Normal Inspection Ears: Normal External Exam, Normal Canal, Hearing Grossly Normal, Normal TMs Nose: Normal Inspection, Normal Mucosa, No Blood Throat/Mouth: Normal Inspection, Normal Lips, Normal Teeth, Normal Gums, Normal Oropharynx, Normal Voice, No Airway Compromise Head: Atraumatic, Normocephalic Neck: Normal Inspection, Supple, Non-Tender, Full Range of Motion. No: Lymphadenopathy (L), Lymphadenopathy (R) Respiratory/Chest: No Respiratory Distress, Lungs Clear, Normal Breath Sounds, No Accessory Muscle Use. No: Decreased Breath Sounds, Crackles, Rhonchi, Wheezing, Stridor, Prolonged Expiration Cardiovascular: Normal Peripheral Pulses, Regular Rate, Rhythm, No Gallop, No JVD, No Murmur, No Rub Peripheral Pulses: 3+: Radial (L), Radial (R) GI/Abdominal: Normal Bowel Sounds, Soft, Non-Tender, No Organomegaly, No Distention, No Abnormal Bruit, No Mass Back Exam: Normal Inspection, Full Range of Motion, NT Extremities: Normal Inspection, Normal Range of Motion, Normal Capillary Refill Neurological: Alert, Oriented, Normal Cognition, No Motor/Sensory Deficits Psychiatric: Flat Affect Skin Exam: Warm, Dry, Intact, Normal Color, No Rash #1 Interpretation EKG Date: 01/02/21 Time: 23:14 Rhythm: NSR Rate (Beats/Min): 94 Newell: Normal P-Wave: Present QRS: Normal ST-T: Normal QT: Normal Comparison: NA - No Prior EKG Course - Vital Signs Last Recorded V/S: Last Vital Signs Temp 36.6 C 01/02/21 23:16 Pulse 84 01/03/21 02:37 Resp 16 01/03/21 02:37 BP 111/63 01/03/21 02:37 Pulse Ox 99 01/03/21 02:37 - Orders/Labs/Meds Labs: Laboratory Tests 01/02/21 01/02/21 01/02/21 Range/Units 23:30 23:40 23:40 WBC 11.00 H (3.98-10.04) K/mm3 RBC 4.68 (3.98-5.22) M/mm3 Hgb 12.9 D (11.2-15.7) gm/dl Hct 39.8 (34.1-44.9) % MCV 85.0 D (79.4-94.8) fl MCH 27.6 (25.6-32.2) pg MCHC 32.4 (32.2-35.5) g/dl RDW Std Deviation 41.8 (36.4-46.3) fL Plt Count 280 D (182-369) K/mm3 MPV 10.6 (9.4-12.3) fl Neutrophils % (Manual) 65 H (40-60) % Band Neutrophils % 2 (0-10) % Lymphocytes % (Manual) 26 (20-40) % Atypical Lymphs % 0 % Monocytes % (Manual) 3 (2-10) % Eosinophils % (Manual) 2 (0.7-5.8) % Basophils % (Manual) 2 H (0.1-1.2) Platelet Estimate Adequate RBC Morph Comment Normal Sodium 141 (136-145) mEq/L Potassium 3.2 L (3.5-5.1) mEq/L Chloride 103 (98-107) mEq/L Carbon Dioxide 28 (21-32) mEq/L Anion Gap 13.2 (5-15) BUN 19 H (7-18) mg/dL Creatinine 0.7 (0.55-1.02) mg/dL Est Cr Clr Drug Dosing 85.18 mL/min Estimated GFR (MDRD) > 60 (>60) mL/min BUN/Creatinine Ratio 27.1 H (14-18) Glucose 110 H (74-106) mg/dL Calcium 8.9 (8.5-10.1) mg/dL Total Bilirubin 0.3 (0.2-1.0) mg/dL AST 14 L (15-37) U/L ALT 24 (14-59) U/L Alkaline Phosphatase 68 (46-116) U/L Total Protein 7.2 (6.4-8.2) g/dl Albumin 3.5 (3.4-5.0) g/dl Globulin 3.7 gm/dL Albumin/Globulin Ratio 1.0 (1-2) Influenza Type A RNA Negative (NEGATIVE) Influenza Type B RNA Negative (NEGATIVE) SARS-CoV-2 RNA ([place]) Negative (NEGATIVE) Meds: Medications Discontinued Medications Generic Name Dose Route Start Last Admin Trade Name Francis PRN Reason Stop Dose Admin Influenza Virus Vaccine Confirm 01/03/21 02:28 Flu Vacc [id number](6mos Up)/Pf 60 Mcg/0.5 Ml Syringe Administered 01/03/21 02:29 Dose 60 mcg IM .STK-MED ONE Potassium Chloride 40 meq 01/03/21 02:11 Potassium Chloride 20 Meq Tab.Er PO 01/03/21 02:12 ONETIME ONE Potassium Chloride Confirm 01/03/21 02:27 Potassium Chloride 20 Meq Tab.Er Administered 01/03/21 02:28 Dose 40 meq .ROUTE .STK-MED ONE - Re-Assessments/Exams Free Text/Narrative Re-Assessment/Exam: 01/03/21 00:23 As above, the patient has had 2 or 3 days of generalized body aches, a dry cough, dyspnea, and intermittent right-sided chest pain, but no fever. Her physical exam is grossly unremarkable. A work-up including a CBC, CMP, swab for the SARS-CoV-2 virus and influenza viruses, and a chest x-ray was ordered at triage. The two-view chest radiograph appears to be grossly normal. The cardiac silhouette is within normal limits. No pulmonary vascular congestion. No pleural effusions. No focal infiltrate. No pneumothorax. Formal read per the Radiologist pending. 01/03/21 02:10 The patient's CBC is remarkable for slight leukocytosis of 11.0, but with only 2% bandemia, and the remainder of her CBC being unremarkable. Her CMP is remarkable for hypokalemia of 3.2, and a BUN slightly elevated at 19, with a Cr normal at 0.7. She has slight hyperglycemia of 110, with the remainder of her CMP being unremarkable. Her swab for the SARS-CoV-2 virus and influenza returned negative for all. Based on the above, I have ordered 40 mEq of oral KCl. 01/03/21 02:14 Test results discussed with the patient. I suspect that she is suffering from a viral URI. No specific treatment is necessary - antibiotics are not indicated. She may safely be discharged home. The patient will be given an influenza vaccine prior to discharge. Departure - Departure Time of Disposition: 02:14 Disposition: Home, Self-Care 01 Condition: Good Clinical Impression: Viral URI with cough, Hypokalemia - Discharge Information *PRESCRIPTION DRUG MONITORING PROGRAM REVIEWED*: Not Applicable *COPY OF PRESCRIPTION DRUG MONITORING REPORT IN PATIENT CORNEL: Not Applicable Instructions: Viral Respiratory Infection, [id number] Referrals: Bettye Tiwari MD [Primary Care Provider] - Forms: ED Department Discharge Additional Instructions: You were seen in the emergency room for 3 days of body aches, along with a cough leading to vomiting, shortness of breath, and intermittent right-sided chest pain. Work-up in the ER included several blood tests, a swab for the SARS-CoV-2 virus and influenza viruses, and a chest x-ray. Your blood work found your potassium to be mildly low at 3.2. You were given oral potassium replacement in the ER. The remainder of your work-up was unremarkable. You do not have pneumonia. You do not have COVID-19. Based on your history, physical exam, and ER tests, you are most likely suffering from a viral URI. Unfortunately, there are no medicines to treat a viral URI - it will have to run its course. As discussed, we do not recommend that you take any rnfn-ugn-mufqrfy cough or cold remedies, as they have been shown to be of no benefit, but do have side effects, such as an upset stomach. If any other problems, please do not hesitate to return to the ER. You were given an influenza vaccine during your ER visit. Sepsis Event Note (ED) - Evaluation Sepsis Screening Result: No Definite Risk
[2021-01-03] MEDS ORDERED: Potassium Chloride 20 MEQ Tab.ER PO ONE (02:11)
[2021-01-03] MEDS ORDERED: Potassium Chloride 20 MEQ Tab.ER ONE (02:27)
[2021-01-03] MEDS ORDERED: FLU VACC QS2020-21(6MOS UP)/PF 60 MCG/0.5 ML SYRINGE IM ONE (02:28)
--- NOTE | 2021-01-03 07:05 | CR ---
Chest: 2 views of the chest were obtained. Comparison: No prior chest imaging is available. Heart size and mediastinum are normal. Lungs are clear with no acute parenchymal change. Bony structures are within normal limits for the patient's age. Impression: 1. Nothing acute is seen on 2 view chest x-ray. Diagnostic code #1
== END 2021-01-03 02:36 | disposition home or self-care (01) ==
LOC: JD.ED 23:03
DX: J06.9 Acute upper respiratory infection, unspecified (principal); E87.6 Hypokalemia; E66.9 Obesity, unspecified; Z68.41 Body mass index [BMI] 40.0-44.9, adult; Z87.891 Personal history of nicotine dependence; Z20.822 Contact with and (suspected) exposure to COVID-19
CPT/HCPCS: 0240U; 36415; 71046; 80053; 85007; 85027; 99285; 93005; 93010; 99284

== ENCOUNTER 2021-07-24 14:19 | Emergency (ER) | payer BC, MEDICAID ==
[2021-07-24] MEDS ORDERED: Sodium Chloride 0.9% 10 ML Syringe FLUSH PRN (16:46)
--- NOTE | 2021-07-24 17:01 | EDM.PDOC ---
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 Patient developed some suprapubic discomfort today, she is a G3, P2 with no previous issues with . SINGLE FOLD MACHINE OPERATOR is Dr. Tiwari and she states that she is not scheduled to see Dr. Tiwari till August 17. Last menstrual period was roughly June 08. She did take a home positive test. She is denying any fevers or chills, cough or shortness of breath, any sort of diarrhea she did have some nausea and vomiting earlier today. States she is not felt pain like this before. She has not had any abdominal surgeries ever. Treatments EKG/ECG TECHNICIAN: Reports: Other (see below) Other Treatments EKG/ECG TECHNICIAN: none Lower Abdomen Pain Score (Numeric/FACES): 7 Lower Back Pain Score (Numeric/FACES): 5 - Related Data Allergies Allergy/AdvReac Type Severity Reaction Status Date / Time No Known Allergies Allergy Verified 01/02/21 23:18 Home Meds: Home Meds Cefdinir [Omnicef] 300 mg PO BID 5 Days #10 cap 07/24/21 [Rx] Ondansetron [Zofran ODT] 4 mg PO Q8H PRN #15 tab.dis 07/24/21 [Rx] Past Medical History - Past Health History Medical/Surgical History: Denies Medical/Surgical History SINGLE FOLD MACHINE OPERATOR History: Reports: , Other (See Below) Other SINGLE FOLD MACHINE OPERATOR History: Primary C/S in 2013 for breech presentation Endocrine/Metabolic History: Reports: Obesity/BMI 30+ - Infectious Disease History Infectious Disease History: Reports: Novel Coronavirus - Past Surgical History HEENT Surgical History: Reports: Oral Surgery Female Surgical History: Reports: Section Social & Family History - Family History Family Medical History: No Pertinent Family History - Tobacco Use Tobacco Use Status *Q: Former Tobacco User Used Tobacco, but Quit: Yes Month/Year Tobacco Last Used: 2 weeks - Caffeine Use Caffeine Use: Reports: Soda, Tea - Recreational Drug Use Recreational Drug Type: Reports: Marijuana/Hashish - Living Situation & Occupation Living situation: Reports: Single, with Family Occupation: Employed ([employer]) ED ROS GENERAL - Review of Systems Review Of Systems: Comprehensive ROS is negative, except as noted in HPI. ED EXAM - Physical Exam Exam: See Below Exam Limited By: No Limitations General Appearance: Alert, WD/WN, No Apparent Distress Respiratory/Chest: No Respiratory Distress, Lungs Clear, Normal Breath Sounds, No Accessory Muscle Use, Chest Non-Tender Cardiovascular: Normal Peripheral Pulses, Regular Rate, Rhythm, No Edema GI/Abdominal Exam: Normal Bowel Sounds, Soft, No Distention, Tender (suprapubic mainly) Heart Tones: Not M[place]at Movement: Not Appreciated Extremities: Normal Inspection, Normal Range of Motion, Non-Tender, No Pedal Edema, Normal Capillary Refill Neurological: Alert, Oriented, Normal Cognition, No Motor/Sensory Deficits Psychiatric: Normal Affect, Normal Mood Skin Exam: Warm, Dry, Intact, Normal Color, No Rash Course - Vital Signs Last Recorded V/S: Last Vital Signs Temp 98.5 F 07/24/21 16:31 Pulse 62 07/24/21 16:31 Resp 20 07/24/21 16:31 BP 104/67 07/24/21 16:31 Pulse Ox 100 07/24/21 16:31 - Orders/Labs/Meds Orders: Active Orders 24 hr Category Date Time Status Peripheral IV Care [RC] . DIRECTED Care 07/24/21 16:47 Active CULTURE URINE [MREF] Urgent Lab 07/24/21 17:18 Received Sodium Chloride 0.9% [Saline Flush] Med 07/24/21 16:46 Active 10 ml FLUSH ASDIRECTED PRN Peripheral IV Insertion Adult [OM.PC] Stat Oth 07/24/21 16:46 Ordered Medication Orders Sodium Chloride (Sodium Chloride 0.9% 10 Ml Syringe) 10 ml FLUSH ASDIRECTED PRN PRN Reason: Keep Vein Open Labs: Laboratory Tests 07/24/21 07/24/21 07/24/21 Range/Units 16:58 16:58 16:58 WBC 12.90 H (3.98-10.04) K/mm3 RBC 4.63 (3.98-5.22) M/mm3 Hgb 13.0 (11.2-15.7) gm/dl Hct 40.4 (34.1-44.9) % MCV 87.3 (79.4-94.8) fl MCH 28.1 (25.6-32.2) pg MCHC 32.2 (32.2-35.5) g/dl RDW Std Deviation 46.1 (36.4-46.3) fL Plt Count 322 (182-369) K/mm3 MPV 10.2 (9.4-12.3) fl Neut % (Auto) 72.0 H (34.0-71.1) % Lymph % (Auto) 21.1 (19.3-51.7) % [place] % (Auto) 5.4 (4.7-12.5) % Eos % (Auto) 1.0 (0.7-5.8) Baso % (Auto) 0.2 (0.1-1.2) % Neut # (Auto) 9.28 H (1.56-6.13) K/mm3 Lymph # (Auto) 2.72 (1.18-3.74) K/mm3 [place] # (Auto) 0.70 H (0.24-0.36) K/mm3 Eos # (Auto) 0.13 (0.04-0.36) K/mm3 Baso # (Auto) 0.03 (0.01-0.08) K/mm3 HCG, Quant 23520.0 mIU/mL Urine Color (Yellow) Urine Appearance (Clear) Urine pH (5.0-8.0) Ur Specific [place] (1.005-1.030) Urine Protein (Negative) Urine Glucose (UA) (Negative) Urine Ketones (Negative) Urine Occult Blood (Negative) Urine Nitrite (Negative) Urine Bilirubin (Negative) Urine Urobilinogen (0.2-1.0) Ur Leukocyte Esterase (Negative) Urine RBC (0-5) /hpf Urine WBC (0-5) /hpf Ur Squamous Epith Cells (0-5) /hpf Urine Bacteria (FEW) /hpf Urine Mucus (FEW) /hpf Blood Type O POSITIVE Gel Antibody Screen Negative 07/24/21 Range/Units 17:18 WBC (3.98-10.04) K/mm3 RBC (3.98-5.22) M/mm3 Hgb (11.2-15.7) gm/dl Hct (34.1-44.9) % MCV (79.4-94.8) fl MCH (25.6-32.2) pg MCHC (32.2-35.5) g/dl RDW Std Deviation (36.4-46.3) fL Plt Count (182-369) K/mm3 MPV (9.4-12.3) fl Neut % (Auto) (34.0-71.1) % Lymph % (Auto) (19.3-51.7) % [place] % (Auto) (4.7-12.5) % Eos % (Auto) (0.7-5.8) Baso % (Auto) (0.1-1.2) % Neut # (Auto) (1.56-6.13) K/mm3 Lymph # (Auto) (1.18-3.74) K/mm3 [place] # (Auto) (0.24-0.36) K/mm3 Eos # (Auto) (0.04-0.36) K/mm3 Baso # (Auto) (0.01-0.08) K/mm3 HCG, Quant mIU/mL Urine Color Yellow (Yellow) Urine Appearance Slt cloudy H (Clear) Urine pH 6.0 (5.0-8.0) Ur Specific [place] > or = 1.030 (1.005-1.030) Urine Protein Trace H (Negative) Urine Glucose (UA) Negative (Negative) Urine Ketones Negative (Negative) Urine Occult Blood 1+ H (Negative) Urine Nitrite Negative (Negative) Urine Bilirubin Negative (Negative) Urine Urobilinogen 0.2 (0.2-1.0) Ur Leukocyte Esterase Negative (Negative) Urine RBC 5-10 H (0-5) /hpf Urine WBC 0-5 (0-5) /hpf Ur Squamous Epith Cells 10-20 H (0-5) /hpf Urine Bacteria Moderate H (FEW) /hpf Urine Mucus Moderate H (FEW) /hpf Blood Type Gel Antibody Screen Meds: Medications Generic Name Dose Route Start Last Admin Trade Name Freq PRN Reason Stop Dose Admin Sodium Chloride 10 ml 07/24/21 16:46 Sodium Chloride 0.9% 10 Ml Syringe FLUSH ASDIRECTED PRN Keep Vein Open - Re-Assessments/Exams Free Text/Narrative Re-Assessment/Exam: 07/24/21 17:00 Patient presents to the ER for the evaluation of her abdominal discomfort in . We will go ahead and get some labs, and ultrasound for further evaluation. 07/24/21 17:52 Ultrasound demonstrated a single intrauterine gestational sac but no yolk sac or pole is present but it likely relates to early gestational age. Measurements whether 5 weeks 4 days. Patient's hCG is 10,209, her blood type is O+. As for today's purposes it does appear as if she has a viable and it is not ectopic. Still awaiting a urinalysis of sorts for ongoing investigation but will hopefully be able to get the patient home with general recommendations, and have her follow-up with SINGLE FOLD MACHINE OPERATOR this week to see if they would like to perform further lab testing or ultrasounds. 07/24/21 18:13 Urinalysis is suspect for either contamination or beginning of UTI such as having pelvic pressure and discomfort we will err on the side of caution and get her started on oral Omnicef for suspected UTI urine to be sent for culture. We will get her some tablets of Zofran for ongoing management she will follow up with Dr. Tiwari tomorrow. Departure - Departure Time of Disposition: 18:15 Disposition: Home, Self-Care 01 Condition: Good Clinical Impression: Abdominal pain affecting UTI (urinary tract infection) Qualifiers: Urinary tract infection type: acute cystitis Hematuria presence: with hematuria Qualified Code(s): N30.01 - Acute cystitis with hematuria - Discharge Information *PRESCRIPTION DRUG MONITORING PROGRAM REVIEWED*: No *COPY OF PRESCRIPTION DRUG MONITORING REPORT IN PATIENT CORNEL: No Prescriptions: Cefdinir [Omnicef] 300 mg PO BID 5 Days #10 cap Ondansetron [Zofran ODT] 4 mg PO Q8H PRN #15 tab.dis PRN Reason: Nausea Instructions: Abdominal Pain During , [id number], and Urinary Tract Infection Referrals: Bettye Tiwari MD [Primary Care Provider] - Forms: ED Department Discharge Additional Instructions: You have been evaluated in the ED for your urinary symptoms. Your urinalysis was consistent with an acute urinary tract infection. Your urine was sent for culture, and you will be notified if you should need a change in your antibiotic. This may take up to 48 hours to result. You have been given a prescription for Omnicef (cefdinir), 300 mg 1 tablet 2 times a day for 5 days. Please note that the antibiotics can take up to 48 hours to start working. You were given 1 prescription as well for Zofran, you may take 1 tablet dissolvable under your tongue every 8 hours as needed for ongoing nausea management [facility] [employer]. You did have some labs drawn, and these were within normal limits, your hCG level was 10,290 , your blood type is O+. Your ultrasound demonstrated an intrauterine dated at 5w4d with no discernible heart rate at this time- which is not atypical for this stage of . Recommend that you do not lift anything heavier than a gallon of milk (5 lbs), do not engage in sexual activities, try to get as much pelvic rest as possible for the next few days. Please try not to exert yourself, rest and relax, and take it easy. If you are bleeding through more than 1-2 maxi pads every couple hours, this would be cause for concern to return to the ER for immediate management. Please follow up with your SINGLE FOLD MACHINE OPERATOR tomorrow for ongoing management of your regarding repeat imaging studies and/or lab work. Please return to the ED at any time if your symptoms change or worsen. Sepsis Event Note (ED) - Focused Exam Vital Signs: Vital Signs Temp Pulse Resp BP Pulse Ox 07/24/21 16:31 98.5 F 62 20 104/67 100 - My Orders Last 24 Hours: My Active Orders 07/24/21 16:46 Sodium Chloride 0.9% [Saline Flush] 10 ml FLUSH ASDIRECTED PRN Peripheral IV Insertion Adult [OM.PC] Stat 07/24/21 16:47 Peripheral IV Care [RC] . DIRECTED 07/24/21 17:18 CULTURE URINE [MREF] Urgent - Assessment/Plan Last 24 Hours: My Active Orders 07/24/21 16:46 Sodium Chloride 0.9% [Saline Flush] 10 ml FLUSH ASDIRECTED PRN Peripheral IV Insertion Adult [OM.PC] Stat 07/24/21 16:47 Peripheral IV Care [RC] . DIRECTED 07/24/21 17:18 CULTURE URINE [MREF] Urgent
--- NOTE | 2021-07-24 17:39 | US ---
First trimester obstetrical ultrasound: Multiple real-time images were obtained transvaginally. Dates: Working STEVENSON: 03/15/22, gestational age 6 weeks 4 days Current ultrasound: STEVENSON 03/22/22, gestational age 5 weeks 4 days Single intrauterine gestational sac appears to be present. No yolk sac or pole is seen. Maternal ovaries show no discrete abnormality. Measurements: Gestational sac: 0.57 cm - 5 weeks 4 days Impression: 1. Small gestational sac. No pole or yolk sac is seen. This most likely relates to early gestational age. If patient doesn't miscarry, recommend repeat study in 11-14 days to confirm normal developing . Diagnostic code #1
== END 2021-07-24 18:30 | disposition home or self-care (01) ==
LOC: SUPCPDRO 14:19 → JD.ED 14:19
DX: O23.11 Infections of bladder in pregnancy, first trimester (principal); O99.211 Obesity complicating pregnancy, first trimester; Z68.37 Body mass index [BMI] 37.0-37.9, adult; Z87.891 Personal history of nicotine dependence; Z86.16 Personal history of COVID-19; Z3A.01 Less than 8 weeks gestation of pregnancy
CPT/HCPCS: 36415; 76817; 76817-26; 81001; 84702; 85025; 86850; 86900; 86901; 87086; 99284-25

== ENCOUNTER 2022-03-13 00:42 | Inpatient (IN) | payer MEDICAID ==
[2022-03-13] MEDS ORDERED: Ondansetron 4 MG/2 ML SDV IVPUSH PRN ×3 (03:31→09:39)
[2022-03-13] MEDS ORDERED: Nalbuphine HCl 10 MG/ 1ML Amp IVPUSH PRN (03:31)
[2022-03-13] MEDS ORDERED: Oxytocin/Lactated Ringers 10 UNIT/1,000 ML BAG IV SCH ×2 (03:45)
[2022-03-13] MEDS: Lactated Ringers 1,000 ML IV SCH ×2 (04:43→07:28)
[2022-03-13] MEDS ORDERED: ePHEDrine 50 MG/ML SDV IVPUSH PRN ×2 (06:30→11:00)
[2022-03-13] MEDS ORDERED: fentaNYL 100 MCG/2 ML SDV EPIDUR PRN (06:30)
[2022-03-13] MEDS ORDERED: Bupivacaine/fentaNYL/NS 100 ML Bag EPIDUR PRN (06:31)
[2022-03-13] MEDS ORDERED: Citric Acid/Sodium Citrate Solution 30 ML Cup PO ONE (07:30)
[2022-03-13] MEDS ORDERED: Metoclopramide 10 MG/2 ML SDV IVPUSH ONE (07:30)
[2022-03-13] MEDS ORDERED: Azithromycin 500 MG in Sodium Chloride 0.9% 250 ML IV ONE (07:30)
[2022-03-13] MEDS ORDERED: ceFAZolin 2 GM in Sodium Chloride 0.9% 50 ML IV ONE (07:30)
[2022-03-13] MEDS ORDERED: Morphine PF 10 MG/10 ML SDV ONE (07:35)
[2022-03-13] MEDS ORDERED: Bupivacaine 0.5% 30 ML SDV ONE (08:26)
[2022-03-13] MEDS ORDERED: diphenhydrAMINE 50 MG/ML SDV ONE (08:31)
[2022-03-13] MEDS ORDERED: Ondansetron 4 MG/2 ML SDV ONE (08:31)
[2022-03-13] MEDS ORDERED: Oxytocin 10 Units/1 ML SDV ONE (08:43)
[2022-03-13] MEDS ORDERED: Ketorolac 15 MG/ML SDV ONE (08:56)
[2022-03-13] MEDS ORDERED: Sodium Chloride 0.9% 10 ML Syringe FLUSH SCH (09:00)
[2022-03-13] MEDS ORDERED: ceFAZolin 1 GM Vial ONE (09:01)
[2022-03-13] MEDS ORDERED: diphenhydrAMINE 50 MG/ML SDV IVPUSH PRN ×2 (09:39→11:00)
[2022-03-13] MEDS ORDERED: fentaNYL 100 MCG/2 ML SDV IVPUSH PRN (09:39)
[2022-03-13] MEDS ORDERED: Meperidine 50 MG/ML Vial IVPUSH PRN (09:39)
[2022-03-13] MEDS ORDERED: Dextrose 5%-Lactated Ringers 1,000 ML IV SCH (10:42)
[2022-03-13] MEDS ORDERED: Docusate Sodium 100 MG Cap PO PRN (11:00)
[2022-03-13] MEDS ORDERED: Ondansetron 4 MG/2 ML SDV IV PRN (11:00)
[2022-03-13] MEDS ORDERED: Naloxone 0.4 MG/ML SDV IVPUSH PRN (11:00)
[2022-03-13] MEDS: Ampicillin 2 GM in Sodium Chloride 0.9% 100 ML IV SCH ×3 (11:11→23:05)
[2022-03-13] MEDS: Clindamycin Phosphate in D5W 900 MG in Premix Bag 1 BAG IV SCH ×4 (12:00→19:56)
[2022-03-13] MEDS: Ketorolac 30 MG/ML SDV IVPUSH SCH ×2 (15:38→21:33)
[2022-03-13] MEDS ORDERED: Promethazine 25 MG/ML SDV IM ONE (16:40)
[2022-03-13] MEDS ORDERED: Lactated Ringers 500 ML IV ONE ×2 (16:47→20:30)
[2022-03-13] MEDS ORDERED: Lidocaine 2% with EPINEPHrine 1:200,000 20 ML SDV ONE (20:30)
[2022-03-14] MEDS: Ketorolac 30 MG/ML SDV IVPUSH SCH (03:52)
[2022-03-14] MEDS: Clindamycin Phosphate in D5W 900 MG in Premix Bag 1 BAG IV SCH ×2 (03:53)
[2022-03-14] MEDS ORDERED: Lactated Ringers 500 ML IV ONE (04:11)
[2022-03-14] MEDS: Ampicillin 2 GM in Sodium Chloride 0.9% 100 ML IV SCH (04:32)
[2022-03-14] MEDS: Acetaminophen/oxyCODONE 325-5 MG Tab PO PRN ×3 (09:53→21:43)
[2022-03-15] MEDS: Ibuprofen 600 MG Tab PO PRN ×2 (03:47→15:33)
[2022-03-15] MEDS: Acetaminophen/oxyCODONE 325-5 MG Tab PO PRN ×3 (07:22→21:37)
[2022-03-16] MEDS: Acetaminophen/oxyCODONE 325-5 MG Tab PO PRN ×2 (07:49→17:08)
[2022-03-16] MEDS ORDERED: Magnesium Hydroxide 400 MG/5 ML Susp 30 ML Cup PO PRN (07:51)
[2022-03-16] MEDS ORDERED: Ondansetron 4 MG Tab.DIS PO PRN (10:12)
[2022-03-16] MEDS: Ibuprofen 600 MG Tab PO PRN (14:14)
== END 2022-03-16 18:15 | disposition home or self-care (01) | DRG 786 ==
LOC: JD.OBCHECK 00:42 → JD.OB 00:45 → JD.OBCHECK 03:31 → JD.OB 03:32 → OBSVTOIN 08:49 → JD.OB 08:50
PROVIDERS: ADMIT Obstetrics & Gynecology; ATTEND Obstetrics & Gynecology
PROC: 10D00Z1 Extraction of Products of Conception, Low, Open Approach (ICD-10-PCS; principal; 2022-03-13)
DX: O34.211 Maternal care for low transverse scar from previous cesarean delivery (principal); O41.1230 Chorioamnionitis, third trimester, not applicable or unspecified; Z3A.38 38 weeks gestation of pregnancy; Z37.0 Single live birth; O76 Abnormality in fetal heart rate and rhythm complicating labor and delivery
CPT/HCPCS: 36415; 59025; 81001; 84112; 85025; 85027; 86592; 86850; 86900; 86901; 94762; A9270-GY; J0290; J0456; J0690; J1200; J1580; J1885; J2274; J2370; J2405; J2550; J2590; J2765; J3010; J3490; J7050; J7120; J7121